=== PATIENT | male | born 1980 | race Caucasian/White ===

== ENCOUNTER 2020-01-16 21:06 | Inpatient (IN) | payer MEDICAID, OTHER ==
[2020-01-16] MEDS ORDERED: Acetaminophen 500 MG TAB ONE (21:27)
[2020-01-16 22:11] LABS: #Eosinphils 0.1 thou/uL (0.0-0.7); #Lymphocytes 1.3 thou/uL (1.20-3.40); #Monocytes 0.3 thou/uL (0.11-0.59); #Neutrophils 2.5 thou/uL (1.40-6.50); %Basophils 0.5 % (0.0-1.0); %Lymphocytes 30.7 % (21.0-51.0); %Monocytes 7.8 % (0.0-10.0); Hemoglobin 13.6 g/dL (14.0-18.0); Mean Corpuscular HGB CONC 33.3 g/dL (32.0-36.0); Mean Corpuscular Hemoglobin 28.4 pg (27.0-31.0); Mean Corpuscular Volume 85.4 fL (78.0-98.0); Mean Platelet Volume 8.3 fL (7.4-10.4); Platelet Count 223 thou/uL (130-400); RBC Distribution Width 13.2 % (11.5-14.5); Red Blood Cell (RBC) Count 4.78 mill/uL (4.70-6.10); White Blood Cell (WBC) Count 4.2 thou/uL (4.8-10.8)
[2020-01-16] MEDS ORDERED: cefTRIAXone\\ROCEPHIN 1 GM VIAL ONE (22:20)
--- NOTE | 2020-01-16 22:21 | RAD ---
RADIOGRAPH CHEST 2 VIEWS: DATE: 01/16/2020 HISTORY: 39-year-old male with fever, chills, and cough FINDINGS: There is no airspace density, pulmonary edema, pleural effusion, pneumothorax, or cardiomegaly. IMPRESSION: No acute cardiopulmonary findings.
[2020-01-16 22:54] LABS: Albumin 3.2 g/dL (3.5-5.0)
[2020-01-16 22:56] LABS: Chloride 102 mmol/L (98-107); Potassium 3.9 mmol/L (3.5-5.1); Sodium 134 mmol/L (136-145)
[2020-01-16 22:57] LABS: Glucose 130 mg/dL (70-105); Protein, Total 7.2 g/dL (6.0-8.3)
[2020-01-16 22:59] LABS: Anion Gap 14 mmol/L (10-20); Bilirubin, Total 0.4 mg/dL (0.2-1.2); Carbon Dioxide 22 mmol/L (22-29)
[2020-01-16 23:00] LABS: Alkaline Phosphatase 115 U/L (40-110)
[2020-01-16 23:01] LABS: BUN (Urea Nitrogen) 11 mg/dL (8.9-20.6); Calc. Creatinine Clearance 0 mL/min (70-130); Estimated GFR-MDRD Greater than 90
[2020-01-16 23:02] LABS: AST (SGOT) 74 U/L (5-34)
[2020-01-16 23:03] LABS: ALT (SGPT) 105 U/L (8-55); Lipase 25 U/L (8-78)
[2020-01-16] MEDS ORDERED: Vancomycin 1 GM/200 ML BAG ONE (23:08)
[2020-01-16 23:14] LABS: Syphilis Antibody Index 9.89 S/CO (<1.00 Non-Reactive)
[2020-01-17] MEDS ORDERED: Morphine 2 MG/ML VIAL SLOW IVP PRN (00:08)
[2020-01-17] MEDS ORDERED: HYDROcodone/Acetaminophen 5/325 mg Tablet PO PRN (00:08)
[2020-01-17] MEDS ORDERED: Promethazine HCl 12.5 MG in Sodium Chloride 0.9% 50 ML IVPB PRN (00:08)
[2020-01-17] MEDS ORDERED: Ondansetron PF 4 MG/2 ML Vial IVP PRN (00:08)
[2020-01-17] MEDS ORDERED: Acetaminophen 325 MG TAB PO PRN (00:08)
[2020-01-17] MEDS ORDERED: Guaifenesin DM 100-10/5 ML UDCUP PO PRN (00:08)
[2020-01-17] MEDS ORDERED: Albuterol 200 PUFF (6.7GM INHALER) INH PRN (00:08)
[2020-01-17] MEDS ORDERED: cloNIDine 0.1 MG TAB PO PRN (00:08)
[2020-01-17] MEDS ORDERED: Labetalol HCl 100 MG/20 ML VIAL SLOW IVP PRN (00:08)
[2020-01-17] MEDS ORDERED: hydrALAZINE 20 MG/ML VIAL SLOW IVP PRN (00:08)
[2020-01-17] MEDS ORDERED: Electrolyte Replacement Protoc 1 EACH EACH FS SCH (00:15)
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
[2020-01-17] MEDS ORDERED: Electrolyte Replacement Protocol FS PRN (00:45)
[2020-01-17 00:55] LABS: Syphilis Antibody REACTIVE (Nonreactive)
[2020-01-17 01:28] LABS: Bilirubin Negative (Negative); Blood, Urine Negative (Negative); Clarity Clear (Clear); Glucose, Urine (Dipstick) Normal (Negative); Ketone, Urine Negative (Negative); Leukocyte Negative Leu/uL (Negative); Nitrite Negative (Negative); Protein, Urine (Dipstick) Negative (Neg-Trace); Specific Gravity, Urine 1.013 (1.002-1.036); Urobilinogen Normal mg/dL (Less than 2); pH, Urine 5.5 (5.0-9.0)
[2020-01-17] MEDS ORDERED: Fluconazole In NaCl,Iso-Osm 200 MG in Premix Bag 1 BAG IVPB SCH (02:30)
[2020-01-17] MEDS ORDERED: Doxycycline 100 MG CAP PO SCH (02:30)
[2020-01-17 02:38] VITALS: BMI 22.2
[2020-01-17] MEDS: Sodium Chloride 0.9% 1,000 ML IV SCH ×2 (03:32→15:01)
[2020-01-17 05:22] LABS: #Lymphocytes 0.3 thou/uL (1.20-3.40); #Monocytes 0.1 thou/uL (0.11-0.59); #Neutrophils 3.6 thou/uL (1.40-6.50); %Basophils 0.2 % (0.0-1.0); %Eosinophils 0.5 % (0.0-10.0); %Lymphocytes 8.2 % (21.0-51.0); %Monocytes 2.2 % (0.0-10.0); %Neutrophils 88.9 % (42.0-75.0); Hemoglobin 11.1 g/dL (14.0-18.0); Mean Corpuscular HGB CONC 32.7 g/dL (32.0-36.0); Mean Corpuscular Hemoglobin 27.8 pg (27.0-31.0); Mean Corpuscular Volume 85.1 fL (78.0-98.0); Mean Platelet Volume 7.5 fL (7.4-10.4); Platelet Count 182 thou/uL (130-400)
[2020-01-17 05:38] LABS: Anion Gap 13 mmol/L (10-20); BUN (Urea Nitrogen) 11 mg/dL (8.9-20.6); Calc. Creatinine Clearance 130 mL/min (70-130); Calcium 7.9 mg/dL (7.8-10.44); Carbon Dioxide 20 mmol/L (22-29); Chloride 106 mmol/L (98-107); Estimated GFR-MDRD Greater than 90; Glucose 116 mg/dL (70-105); Magnesium 1.5 mg/dL (1.6-2.6); Sodium 135 mmol/L (136-145)
[2020-01-17 05:59] LABS: HBCM Index 0.09 S/CO (0-0.79); Hep A IgM AB Non-Reactive (NonReactive); Hep A IgM S/CO 0.16 S/CO (0-0.79); Hep C IgG Ab Non-Reactive (NonReactive); Hepatitis B Core IgM Abs Non-Reactive (NonReactive)
[2020-01-17] MEDS ORDERED: Azithromycin 100 MG/5 ML Oral Suspension PO SCH (06:00)
[2020-01-17] MEDS ORDERED: Potassium Phosphate 30 MMOL in Sodium Chloride 0.9% 250 ML 250 ML IVPB SCH (06:15)
[2020-01-17] MEDS ORDERED: Magnesium 2 GM/50 ML 2 GM in Premix Bag 1 BAG IVPB SCH (06:15)
[2020-01-17 07:27] LABS: HBSAg Index 2700.45 S/CO (0-0.99)
[2020-01-17 07:28] LABS: Hep B Surf Ag Reflx Confirmation S/CO (NonReactive)
[2020-01-17] MEDS ORDERED: Azithromycin 200 MG/5 ML Oral Suspension PO SCH (07:45)
[2020-01-17] MEDS: Fluconazole 100 MG TAB PO SCH (08:39)
[2020-01-17] MEDS: Enoxaparin Sodium 40 MG/0.4 ML SYRINGE SC SCH (08:39)
[2020-01-17] MEDS: Doxycycline 100 MG CAP PO SCH ×2 (08:39→21:08)
[2020-01-17] MEDS: Sulfameth/Trimethoprim DS 800-160mg TAB PO SCH ×2 (08:39→21:08)
[2020-01-17 12:37] LABS: SARS-CoV-2 MS2 Positive; SARS-CoV-2 N Gene Negative; SARS-CoV-2 S Gene Negative; SARS-CoV-2 by NAA Not Detected (NotDetected); SARS-CoV-2 orf1ab Negative
[2020-01-17 18:12] LABS: Phosphorus 2.3 mg/dL (2.3-4.7)
[2020-01-17 19:20] LABS: Phosphorus 2.8 mg/dL (2.3-4.7)
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
[2020-01-18] MEDS: Sodium Chloride 0.9% 1,000 ML IV SCH (00:28)
[2020-01-18] MEDS: Enoxaparin Sodium 40 MG/0.4 ML SYRINGE SC SCH (08:38)
[2020-01-18] MEDS: Fluconazole 100 MG TAB PO SCH (08:38)
[2020-01-18] MEDS: Doxycycline 100 MG CAP PO SCH (08:39)
[2020-01-18] MEDS: Sulfameth/Trimethoprim DS 800-160mg TAB PO SCH (08:39)
[2020-01-18 15:38] LABS: Hep B Surface AG-Rflx Sendout Confirm. indicated (Negative)
[2020-01-18 15:55] VITALS: BP 132/90; TEMP 97.5
[2020-01-18 17:38] LABS: Absolute CD4 15 /uL (359-1519); Lymphocytes/Gated Cell Count 0.3 x10E3/uL (0.7-3.1); Total Lymphocyte 7 % (Not Estab.); WBC Total Count 4.1 x10E3/uL (3.4-10.8)
[2020-01-18] MEDS ORDERED: SYMTUZA PO SCH (21:00)
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
--- NOTE | 2020-01-19 11:28 | PQF ---
CLINICAL DOCUMENTATION CLARIFICATION FORM: Dear : Geeta Johnson Date / Time: 01/19/2020 Please exercise your independent, professional judgment in responding to the clarification form. Clinical indicators are provided on the bottom of this form for your review Please check appropriate box(es) to clarify if the following diagnosis has been ruled in our ruled out: Sepsis [ ] Ruled in diagnosis [ x ] Continue to treat [ ] Resolved [ ] Ruled out diagnosis [ ] Improving [ ] Cannot rule out diagnosis [ ] Other diagnosis [ ] Unable to determine In addition, please specify: Present on Admission (POA): [ x ] Yes [ ] No [ ] Unable to determine To be completed by CDI/Coding staff for physician review: Present Clinical Indicators - Signs / Symptoms / Labs Results and Location in Medical Record [ x ] Pulse 125 and respiratory rate 20. ED provider notes [ x ] Patient reports 4 days of sore throat, rash, body aches and subjective fever. ED Final diagnoses: Secondary syphilis, HIV and sepsis ED provider notes [ x ] Lactic acid 2.7 (H) on 01/15 Laboratory [ x ] Suspect candidal esophagitis, will treat empirically. Consult infectious diseases services H&P Present Risk Factors Results and Location in Medical Record [ x ] Secondary syphilis infection, HIV infection and history of syphilis diagnosed last February H&P Present Treatments Results and Location in Medical Record [ x ] Infectious disease consult 01/16 by Daniel Head MD Consultation [ x ] IV Rocephin and IV Vancomycin 01/15 Medications [ x ] Azithromycin 600 mg PO 01/16 Medications [ x ] IV fluids 910-01/17 Medications CDS/Magnetic Resonance Imaging Director Signature: [id number] Phone #: Date/Time: 01/19/2020 This is a permanent part of the Medical Record [facility]
[2020-01-19 15:13] LABS: LOG10 HIV-1 RNA 5.305 (.)
== END 2020-01-18 16:27 | disposition home or self-care (01) | DRG 872 ==
LOC: ERS 21:06 → 2NO 01-17 02:10
PROVIDERS: ADMIT Internal Medicine; ATTEND Internal Medicine
DX: A41.9 Sepsis, unspecified organism (principal); A51.49 Other secondary syphilitic conditions; Z20.828 Contact with and (suspected) exposure to other viral communicable diseases; J02.9 Acute pharyngitis, unspecified; F15.11 Other stimulant abuse, in remission; F12.11 Cannabis abuse, in remission; F32.9 Major depressive disorder, single episode, unspecified; F17.200 Nicotine dependence, unspecified, uncomplicated; Z98.890 Other specified postprocedural states; Z86.19 Personal history of other infectious and parasitic diseases; Z88.0 Allergy status to penicillin; Z88.8 Allergy status to other drugs, medicaments and biological substances; Z88.1 Allergy status to other antibiotic agents
CPT/HCPCS: 36415; 71046; 80048; 80053; 80074; 81003; 83605; 83690; 83735; 84100; 85025; 85048; 86361; 86593; 86780; 87040; 87081; 87086; 87340; 87430; 87536; 87635; 96365; 96367; J0696; J1450; J1650; J3370; J3475; J7050; U0003

== ENCOUNTER 2025-04-09 11:12 | Emergency (ER) | payer OTHER, SELFPAY ==
[2025-04-09] MEDS ORDERED: Dibucaine 1% Ointment 28.35 GM TUBE TOP SCH (12:45)
== END 2025-04-09 12:48 ==
LOC: ERS 11:12
DX: T78.40XA Allergy, unspecified, initial encounter (principal); L03.317 Cellulitis of buttock; B20 Human immunodeficiency virus [HIV] disease; F17.210 Nicotine dependence, cigarettes, uncomplicated
CPT/HCPCS: 99283